=== PATIENT | female | born 1985 | race Caucasian/White ===

== ENCOUNTER 2019-07-31 11:41 | Emergency (ER) | payer OTHER, SELFPAY ==
--- NOTE | ~2019-07-31 | XR_ITS ---
XR chest 2V DATE: 07/31/2019 12:09 INDICATION: Right sided chest pain, shortness of breath, acute cough. TECHNIQUE: PA and lateral views COMPARISON: None FINDINGS: Normal heart size. Bilateral hyperinflation. No pulmonary infiltrate or consolidation, pleu ral effusion or pulmonary vascular congestion or pneumothorax. IMPRESSION: No active cardiopulmonary disease Reviewed, dictated and finalized at location A.
[2019-07-31 11:57] VITALS: BP 114/73; PULSE 83; RESP 16; TEMP 36.7; O2SAT 100
--- NOTE | 2019-07-31 12:14 | ED.URI ---
HPI - URI/Sore Throat General Chief Complaint: Upper Respiratory Infection Stated Complaint: COUGH CHEST PAIN Source: patient Mode of arrival: ambulatory Limitations: no limitations History of Present Illness HPI Narrative: this is a 34-year-old female that presents with some a cough with some pain in her chest with deep inspiration, recently diagnosed with a sinus infection is currently on amoxicillin and Tessalon Perles. Patient is not short of breath althoughr she has pain with deep inspiration, with no fever chills cough is nonproductive no nausea vomiting no shortness of breath. MD elicited complaint: cough Onset (ago): day(s) Consistency: intermittent and improved Severity: mild Able to tolerate fluids by mouth: Yes Exacerbating factors: deep breaths Relieving factors: cough suppressant Associated symptoms: nasal congestion Related Data Home Medications Medication Instructions Recorded Confirmed amoxicillin 875 mg PO Q12H 07/31/19 07/31/19 benzonatate 100 mg PO BID PRN 07/31/19 07/31/19 Allergies Allergy/AdvReac Type Severity Reaction Status Date / Time codeine Allergy Unknown Verified 07/31/19 11:56 Review of Systems Review of Systems: All systems reviewed & are unremarkable except as noted in HPI and below PMFSH Past Medical History Medical History Sinusitis Exam Const: General: no acute distress and alert Orientation/consciousness: patient oriented x3 Limitations: altered mental status HENMT: Head: normal to inspection Eyes: Conjunctivae: conjunctivae normal Pupils: Equal, round and reactive pupils present Neck: Neck: normal visual inspection and no lymphadenopathy Chest: Chest palpation & inspection: normal inspection of the chest, abnormal inspection of the chest and tenderness Resp: Effort & Inspection: normal respiratory effort Cardio: Rate: regular rate Rhythm: regular rhythm GI: GI Palp: Yes Soft to palpation : General: Yes no CVA tenderness Skin: General skin exam: normal color Rashes: no rashes Neuro: General: patient oriented x3 Extrem: General: normal to inspection Psych: Mental Status: mental status grossly normal Course Vital Signs Vital signs: Vital Signs Temperature 36.7 C 07/31/19 11:57 Pulse Rate 83 07/31/19 11:57 Respiratory Rate 16 07/31/19 11:57 Blood Pressure 114/73 07/31/19 11:57 Pulse Oximetry 100 07/31/19 11:57 Temperature 36.7 C 07/31/19 11:57 Pulse Rate 83 07/31/19 11:57 Respiratory Rate 16 07/31/19 11:57 Blood Pressure 114/73 07/31/19 11:57 Pulse Oximetry 100 07/31/19 11:57 Critical Care Time Critical Care Time Critical Care Time: No Discharge Plan Discharge Clinical Impression: Intercostal muscle strain Qualifiers: Encounter type: initial encounter Qualified Code(s): S29.011A - Strain of muscle and tendon of front wall of thorax, initial encounter Patient Disposition: Home, Self-Care Condition: Stable Instructions: Antibiotic Form, Muscle Strain (ED) Additional Instructions: continue taking medicine as prescribed, can take ibuprofen as needed for intercostal muscle strain, follow-up with primary care physician if symptoms persist or worsen. Prescriptions: No Action amoxicillin 875 mg Tablet 875 mg PO Q12H RF: 0 benzonatate 100 mg Capsule 100 mg PO BID PRN (Reason: Cough) RF: 0 Follow-up/Referrals: Stephanie,Javier Mortensen MD [Primary Care Provider] - Time of Disposition: 12:18
== END 2019-07-31 12:25 | disposition home or self-care (01) ==
PROVIDERS: Emergency Provider Emergency Medicine; PCP Family Medicine
DX: S29.011A Strain of muscle and tendon of front wall of thorax, initial encounter (principal)
CPT/HCPCS: 71046; 99282; 99283